=== PATIENT | male | born 1935 | race Caucasian/White ===

== ENCOUNTER 2017-08-07 10:20 | Inpatient (IN) | payer OTHER ==
[2017-08-07] MEDS ORDERED: BUPIVACAINE/EPI 0.5% 30 ML SDV ONE (10:35)
[2017-08-07] MEDS ORDERED: GABAPENTIN 100 MG CAP PO ONE (11:13)
[2017-08-07] MEDS ORDERED: cefOXitin SODIUM 2 GM in STERILE WATER INJ 21 ML IV ONE (11:13)
--- NOTE | 2017-08-07 11:13 | PDHPUP ---
History & Physical Update H&P update statement: This history and physical update is based on an assessment of the patient which was completed after admission or registration (within 24 hours), but prior to the surgery/procedure. H&P update: H&P reviewed & patient examined, no change in patient's condition since H&P completed
[2017-08-07] MEDS ORDERED: KETOROLAC 15 MG/1 ML SDV IVP ONE (11:14)
[2017-08-07] MEDS ORDERED: LIDOCAINE 1% 2 ML INJ ONE (11:19)
[2017-08-07] MEDS ORDERED: LIDOCAINE 1% 2 ML INJ ID PRN (11:20)
[2017-08-07] MEDS ORDERED: LR 1,000 ML IV ONE (11:20)
[2017-08-07] MEDS ORDERED: GABAPENTIN 300 MG CAP ONE (11:57)
--- NOTE | 2017-08-07 12:06 | PDANEPAE ---
ANE History of Present Illness colorectal cancer ANE Past Medical History - Cardiovascular History Hx Hypertension: Yes Hx Arrhythmias: Yes Hx Chest Pain: Yes Hx Coronary Artery / Peripheral Vascular Disease: Yes Hx CHF / Valvular Disease: No Hx Palpitations: Yes Cardiovascular History Comment: Afib - Pulmonary History Hx COPD: No Hx Asthma/Reactive Airway Disease: No Hx Recent Upper Respiratory Infection: No Hx Oxygen in Use at Home: No Hx Sleep Apnea: Yes Sleep Apnea Screening Result - Last Documented: Positive - Neurologic History Hx Cerebrovascular Accident: No Hx Seizures: No Hx Dementia: No - Endocrine History Hx Diabetes: No Hypothyroid: No Hyperthyroid: No Obesity: no - Renal History Hx Renal Disorders: Yes Renal History Comment: renal insufficiency - Liver History Hx Hepatic Disorders: No - Neurological & Psychiatric Hx Hx Neurological and Psychiatric Disorders: Yes Neurological / Psychiatric History Comment: restless leg syndrome, essential tremor - Cancer History Hx Cancer: Yes Cancer History Comment: new colon ca - Congenital Disorder History Hx Congenital Disorders: No - GI History Hx Gastrointestinal Disorders: Yes Gastrointestinal History Comment: reflux - Other Health History Other Health History: missing teeth upper and lower. Bruises easily - Chronic Pain History Chronic Pain: Yes (bilat knees) - Surgical History Prior Surgeries: 3 HEART ATTACKS, CABG X3. STENTS X 3 DIFFERENT OCCASIONS ANE Review of Systems Review of systems is: negative Review of Systems: - Exercise capacity METS (RN): 4 METS ANE Patient History - Allergies Allergies/Adverse Reactions: morphine Allergy (Verified 08/07/17 11:20) Other-Enter Comments - Home Medications Home medications: home medication list seen and reviewed Home Medications: Glucosamine Sulfate [Glucosamine Sulfate 500 MG (*)] 500 mg PO DAILY 07/18/17 [ Last Taken 1 Week Ago ~07/31/17] Herbals/Supplements -Info Only 1 ea PO DAILY 07/18/17 [Last Taken 1 Week Ago ~] Lisinopril [Zestril 10 mg (*)] 10 mg PO DAILY 07/18/17 [Last Taken 08/07/17 07: 00] Nitroglycerin [Nitrostat 0.4 mg (*)] 0.4 mg SL Q5M PRN 07/18/17 [Last Taken 3 Months Ago ~05/09/17] [place]-3 Fatty Acids [Fish Oil 1000 mg (*)] 1,000 mg PO DAILY 07/18/17 [Last Taken 1 Week Ago ~07/31/17] Rivaroxaban [Xarelto 15mg (*)] 15 mg PO DAILY 07/18/17 [Last Taken 08/03/17] Simvastatin [Zocor] 40 mg PO DAILY 07/18/17 [Last Taken 08/06/17] - NPO status NPO Since - Liquids (Date): 08/07/17 NPO Since - Liquids (Time): 07:00 NPO Since - Solids (Date): 08/06/17 NPO Since - Solids (Time): 10:00 - Anes Hx Anes Hx: no prior problems - Smoking Hx Smoking Status: Never smoked - Family Anes Hx Family Hx Anesthesia Complications: NONE ANE Labs/Vital Signs - Vital Signs Blood Pressure: 133/84 Heart Rate: 77 Respiratory Rate: 16 O2 Sat (%): 95 Height: 172.72 cm Weight: 86.183 kg ANE Physical Exam - Airway Neck exam: FROM Mallampati Score: Class 2 Mouth exam: poor dentition - Pulmonary Pulmonary: no respiratory distress - Cardiovascular Cardiovascular: regular rate and rhythym - ASA Status ASA Status: III ANE Anesthesia Plan Anesthesia Plan: general endotracheal anesthesia Lines/Monitors: arterial line Specialized Airway: video laryngoscope
[2017-08-07] MEDS ORDERED: fentaNYL 250 MCG/5 ML INJ ONE (12:08)
[2017-08-07] MEDS ORDERED: PROPOFOL 200 MG/20 ML VIAL ONE (12:08)
[2017-08-07] MEDS ORDERED: LIDOCAINE 2% 5 ML SDV ONE (12:10)
[2017-08-07] MEDS ORDERED: DEXAMETHASONE 4 MG/ML VIAL ONE (12:12)
[2017-08-07] MEDS ORDERED: ONDANSETRON 4 MG/2 ML VIAL ONE ×3 (12:13→17:17)
[2017-08-07] MEDS ORDERED: SUGAMMADEX SODIUM 200 MG/2 ML VIAL IVP ONE (12:13)
[2017-08-07] MEDS ORDERED: KETOROLAC 30 MG/1 ML SDV ONE (12:13)
[2017-08-07] MEDS ORDERED: GABAPENTIN 300 MG CAP PO ONE (12:15)
[2017-08-07] MEDS ORDERED: PHENYLEPHRINE 10 MG/ML SDV ONE (12:42)
[2017-08-07] MEDS ORDERED: HYDROmorphONE/DILAUDID 2 MG/ML INJ ONE (13:20)
--- NOTE | 2017-08-07 13:53 | POSTANESTH ---
Post Anesthetic Evaluation Cardiovascular Status: Normal, Stable Respiratory Status: Normal, Stable Level of Consciousness/Mental Status: Can Participate in Eval Pain Control: Adequate, Prn Tx Ordered Nausea/Vomiting Control: Adequate, Prn Tx Ordered Complications Possibly Related to Anesthesia: None Noted
[2017-08-07] MEDS ORDERED: PROMETHAZINE HCL 25 MG/ML INJ IVP PRN (14:40)
[2017-08-07] MEDS ORDERED: LABETALOL HCL 5 MG/ML 20 ML MDV IVP PRN (14:40)
[2017-08-07] MEDS ORDERED: HYDROCODONE/APAP 5/325 TAB PO PRN ×2 (14:40→15:45)
[2017-08-07] MEDS ORDERED: fentaNYL 100 MCG/2 ML INJ IVP PRN (14:40)
[2017-08-07] MEDS ORDERED: ALBUTEROL 3 ML DEYVIAL IH PRN (14:40)
[2017-08-07] MEDS ORDERED: ONDANSETRON 4 MG/2 ML VIAL IVP PRN ×2 (14:40→15:45)
[2017-08-07] MEDS ORDERED: NALOXONE HCL 0.4 MG/ML INJ IVP PRN (14:40)
[2017-08-07] MEDS ORDERED: LR 500 ML IV PRN (14:40)
[2017-08-07] MEDS ORDERED: HYDROmorphONE/DILAUDID 1 MG/ML INJ IVP PRN (14:40)
[2017-08-07] MEDS ORDERED: oxyCODONE IR 5 MG TAB PO PRN (14:40)
[2017-08-07] MEDS ORDERED: ACETAMINOPHEN 500 MG TAB PO PRN (14:40)
[2017-08-07] MEDS ORDERED: HYDROmorphONE/DILAUDID 2 MG/ML INJ IVP PRN (15:45)
[2017-08-07] MEDS ORDERED: ZOLPIDEM TARTRATE 5 MG TAB PO PRN (15:45)
--- NOTE | 2017-08-07 15:45 | POSTOPPROG ---
Post Op Note Date of Operation: 08/07/17 Surgeon: Mello Alvarez Websphere Developer: Jim Miles Anesthesiologist: Noe Nguyen Anesthesia: GET(General Endotracheal) Pre-op Diagnosis: Rectal cancer Post-op Diagnosis: Same Procedure: Lap LAR Findings: Tattoo ross 5cm prox to peritoneal reflection Inf/Abcess present in the surg proc area at time of surgery?: No EBL: Minimal Total fluids administered: 1.3L Specimen(s): Rectosigmoid colon
[2017-08-07] MEDS ORDERED: NITROGLYCERIN 0.4 MG BTL SL PRN (15:49)
[2017-08-07] MEDS ORDERED: LR 1,000 ML IV SCH (16:00)
--- NOTE | 2017-08-07 16:40 | PDMN ---
Medical Necessity Medical necessity: IP surgery per [facility] cpt 77241 lap colectomy
[2017-08-07] MEDS ORDERED: PROMETHAZINE HCL 25 MG/ML INJ ONE (16:42)
[2017-08-07] MEDS ORDERED: LABETALOL HCL 5 MG/ML 20 ML MDV ONE (16:48)
[2017-08-07] MEDS: GABAPENTIN 400 MG CAP PO SCH ×2 (18:09→21:28)
--- NOTE | 2017-08-07 18:32 | GOP ---
[f rep st] OPERATIVE REPORT DATE OF OPERATION: 08/07/2017 SURGEON: Mello Alvarez MD SLAB WORKER: Jim Miles MD ANESTHESIA: General. ANESTHESIOLOGIST: Dr. Noe Nguyen PREOPERATIVE DIAGNOSIS: Rectal cancer, abnormal appendix on CT imaging. POSTOPERATIVE DIAGNOSIS: Rectal cancer, abnormal appendix on CT imaging. PROCEDURE PERFORMED: 1. Laparoscopic low anterior colon resection. 2. Laparoscopic appendectomy. FINDINGS: Tumor clinically confined to the rectum approximately 5cm proximal to the peritoneal reflection. INDICATIONS: 82-year-old male with a newly-diagnosed rectal cancer at approximately 15 cm. Preoperative staging studies show no evidence of metastatic disease. Care plan was reviewed with Medical Oncology, and it was agreed that primary surgical intervention was felt appropriate given the high rectal location. Surgical risks and benefits were explained including bleeding , infection, open conversion, ureter injury, bowel injury, and anastomotic leak. His appendix is also being removed secondary to a possible appendiceal abnormality noted on preoperative imaging as well. All questions were entertained. He desires to proceed. DESCRIPTION OF PROCEDURE: General anesthesia was induced. The abdomen was pre- injected with 0.5% Marcaine with epinephrine. A 5 mm trocar was placed in the supraumbilical position, preceded by a Veress needle. Two additional 10 mm ports were placed in the right lower quadrant as well as hypogastrium, and a 5 mm port within the right mid abdomen. Abdominal exploration revealed a smooth liver, without nodularity. Visualized peritoneal surfaces were all normal. No evidence of ascites was present. The omentum appeared normal. The rectal tumor was easily identified with the previously placed proximal and distal tattoos. The distal tattooing was noted to be approximately 5 cm above the peritoneal reflection. The left colon was mobilized off the white line of [place]. A tortuous external iliac artery was identified and preserved, as was the left ureter throughout the dissection. The peritoneum was scored on either side of the rectum, and a complete trans-mesorectal excision was subsequently entertained. The dissection was taken down distally down to the peritoneal reflection, which was opened, allowing for the rectum to be brought into the abdominal cavity by multiple additional centimeters. A window was created across the underside of the rectum, allowing for the ureter to be identified from medial and lateral positions. At this point, the distal rectum was transected with an endoscopic LYNDSEY stapler. Using the LigaSure device, the mesorectal dissection was completely taken off the sacral hollow and up toward the inferior mesenteric artery, which was also divided. There was a favorable sigmoid redundancy, making for easy reapposition of the mid descending colon down to the pelvic floor. Attention was directed to the appendix. This was subsequently taken out of the retroperitoneum. This was a generally thin- walled structure, without any visible abnormalities extraluminally. The mesoappendix was divided with the LigaSure device, and the base was transected with the endoscopic LYNDSEY stapler as well. The hypogastric incision was extended. A wound protector was placed. The colon and appendix were brought ex vivo. The remaining mesenteric dissection was completed. The colon was transected at a mid descending portion. The cut edge appeared to be pink and healthy, with excellent bleeding. The specimen was removed from the field. A 33 EEA dilator was easily passed into the proximal rectum. A pursestring was applied over the anvil. The colon was reduced back in the abdominal cavity. The hypogastric incision was closed in layers with a PDS suture. The abdomen was re-insufflated. The stapling device was placed up the rectum, and the anastomosis was created with a single firing. There were 2 fat pink healthy donuts upon completion. The rectum was instilled under saline instillation, showing no intraluminal bubbling within the abdominal cavity. Satisfactory hemostasis was assured throughout the abdominal cavity. Trocars were removed under direct visualization. The wounds were all closed in layers with absorbable sutures followed by Dermabond. The patient was taken to recovery room and extubated uneventfully. /[id number]/MODL MTDD
[2017-08-07] MEDS: cefOXitin SODIUM 1 GM in STERILE WATER INJ 10.5 ML IV SCH (19:13)
[2017-08-07] MEDS: IBUPROFEN 600 MG TAB PO SCH (21:28)
[2017-08-08] MEDS: cefOXitin SODIUM 1 GM in STERILE WATER INJ 10.5 ML IV SCH ×2 (00:04→06:05)
[2017-08-08] MEDS: IBUPROFEN 600 MG TAB PO SCH ×3 (06:03→21:41)
[2017-08-08] MEDS: GLUCOSAMINE SULF 500 MG CAP PO SCH (08:53)
[2017-08-08] MEDS: GABAPENTIN 400 MG CAP PO SCH ×3 (08:53→21:41)
[2017-08-08] MEDS: LISINOPRIL 10 MG TAB PO SCH (08:53)
[2017-08-08] MEDS: ATORVASTATIN CALCIUM 20 MG TAB PO SCH (08:53)
[2017-08-08] MEDS: OMEGA-3 FATTY ACIDS 1,000 MG CAP PO SCH (08:53)
--- NOTE | 2017-08-08 12:19 | ASMTCMCOM ---
CM Note CM Note Notes: Patient admitted for elective laparascopic appy and colon resection proceeding a recent rectal cancer diagnosis. Patient lives in [place] with his . Discharge plan is to return home independently. If any needs arise, Case Management can assist. Date Signed: 08/08/2017 12:18 PM Electronically Signed By:Wilda Navarro RN
--- NOTE | 2017-08-08 14:36 | SOAPPROG ---
SOAP Progress Note Assessment/Plan: Assessment:no overnight issues. emesis last alexsander - nausea resolved today. pain well controlled with IB and gabapentin. +BM. AVSS. comfortable. abd dist, soft. incis clean. doing well pod#1 s/p lap LAR. adv diet. bc IV. restart xarelto tomorrow. repeat lytes in am (cr 1.3). family at bedside - to ambulate in halls today. Plan: 08/08/17 14:34 Objective: Vital Signs Temp Pulse Resp BP Pulse Ox 36.6 C 73 14 110/68 98 08/08/17 11:10 08/08/17 11:10 08/08/17 11:10 08/08/17 11:10 08/08/17 11:10 Laboratory Results 08/08/17 04:50 08/08/17 04:50 08/07/17 08/08/17 08/09/17 05:59 05:59 05:59 Intake Total 2019 1200 Output Total 875 750 Balance 1145 450 ICD10 Worksheet Patient Problems: Problems Problem Status Onset Rectal adenocarcinoma Acute - ICD10 Problem Qualifiers (1) Rectal adenocarcinoma
[2017-08-09] MEDS: IBUPROFEN 600 MG TAB PO SCH ×3 (06:14→21:38)
[2017-08-09] MEDS: ATORVASTATIN CALCIUM 20 MG TAB PO SCH ×2 (08:28→08:29)
[2017-08-09] MEDS: RIVAROXABAN 15 MG TAB PO SCH ×2 (08:28→08:29)
[2017-08-09] MEDS: GABAPENTIN 400 MG CAP PO SCH ×3 (08:29→21:38)
[2017-08-09] MEDS: LISINOPRIL 10 MG TAB PO SCH (08:29)
[2017-08-09] MEDS: OMEGA-3 FATTY ACIDS 1,000 MG CAP PO SCH (08:29)
[2017-08-09] MEDS: GLUCOSAMINE SULF 500 MG CAP PO SCH (08:30)
--- NOTE | 2017-08-09 13:06 | SOAPPROG ---
SOAP Progress Note Assessment/Plan: Assessment: good evening. min pain. no further nausea. ambulating well with family. tolerating po. diarrhea overnight. avss. comfortable. abd soft, dist , incis clean. no erythema. pod#2 s/p lap LAR - rectal ca. doing very well. restart xarelto today. anticipate dc in am to family in [place]. creat stable. no overnight issues. emesis last alexsander - nausea resolved today. pain well controlled with IB and gabapentin. +BM. AVSS. comfortable. abd dist, soft. incis clean. doing well pod#1 s/p lap LAR. adv diet. bc IV. restart xarelto tomorrow. repeat lytes in am (cr 1.3). family at bedside - to ambulate in halls today. Plan: 08/08/17 14:34 08/09/17 13:04 Objective: Vital Signs Temp Pulse Resp BP Pulse Ox 37.0 C 75 12 111/64 96 08/09/17 11:39 08/09/17 11:39 08/09/17 11:39 08/09/17 11:39 08/09/17 11:39 Laboratory Results 08/08/17 04:50 08/09/17 04:43 08/08/17 08/09/17 08/10/17 05:59 05:59 05:59 Intake Total 2019 0428 Output Total 075 6196 Balance 1145 -293 ICD10 Worksheet Patient Problems: Problems Problem Status Onset Rectal adenocarcinoma Acute - ICD10 Problem Qualifiers (1) Rectal adenocarcinoma
[2017-08-10] MEDS: IBUPROFEN 600 MG TAB PO SCH (06:24)
[2017-08-10 08:13] VITALS: BP 124/85; PULSE 63; RESP 20; TEMP 98.5; O2SAT 93
[2017-08-10] MEDS: OMEGA-3 FATTY ACIDS 1,000 MG CAP PO SCH (09:39)
[2017-08-10] MEDS: GLUCOSAMINE SULF 500 MG CAP PO SCH (09:39)
[2017-08-10] MEDS: LISINOPRIL 10 MG TAB PO SCH (09:39)
[2017-08-10] MEDS: ATORVASTATIN CALCIUM 20 MG TAB PO SCH (09:39)
[2017-08-10] MEDS: GABAPENTIN 400 MG CAP PO SCH (09:40)
[2017-08-10] MEDS: RIVAROXABAN 15 MG TAB PO SCH (09:40)
--- NOTE | 2017-08-10 09:44 | SOAPPROG ---
SOAP Progress Note Assessment/Plan: Assessment: no issues. avss. comfortable. abd dist, soft. incis clean. doing great. home today. f/u 1 wk (possibly via phone). path reviewed. outpt ONC to be arranged in [place]. all questions answered. good evening. min pain. no further nausea. ambulating well with family. tolerating po. diarrhea overnight. avss. comfortable. abd soft, dist, incis clean. no erythema. pod#2 s/p lap LAR - rectal ca. doing very well. restart xarelto today. anticipate dc in am to family in [place]. creat stable. no overnight issues. emesis last alexsander - nausea resolved today. pain well controlled with IB and gabapentin. +BM. AVSS. comfortable. abd dist, soft. incis clean. doing well pod#1 s/p lap LAR. adv diet. bc IV. restart xarelto tomorrow. repeat lytes in am (cr 1.3). family at bedside - to ambulate in halls today. Plan: 08/08/17 14:34 08/09/17 13:04 08/10/17 09:43 Objective: Vital Signs Temp Pulse Resp BP Pulse Ox 36.9 C 63 20 124/85 H 93 08/10/17 08:00 08/10/17 08:00 08/10/17 08:00 08/10/17 09:39 08/10/17 08:00 Laboratory Results 08/08/17 04:50 08/09/17 04:43 08/09/17 08/10/17 08/11/17 05:59 05:59 05:59 Intake Total 1800 400 Output Total 8124 2 Balance -750 398 ICD10 Worksheet Patient Problems: Problems Problem Status Onset Rectal adenocarcinoma Acute - ICD10 Problem Qualifiers (1) Rectal adenocarcinoma
--- NOTE | 2017-08-10 11:25 | GDS ---
[f rep st] DISCHARGE SUMMARY REASON FOR ADMISSION: Rectal cancer. HOSPITAL COURSE: 82-year-old male admitted with rectal cancer. He underwent an uncomplicated laparo scopic low anterior resection with appendectomy. He had a benign postoperative course. He was disch arged to home on postop day #3 in excellent condition tolerating a regular diet with adequate pain co ntrol with oral analgesics. He will follow up with Dr. Alvarez via phone in 1 week prior to returning to [place]. He was given prescriptions for [place] as needed for discomfort. He will make arrangemen ts to follow up with his Oncology Department closer to home as well. Full activity instructions were explained prior to leaving. 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 /[id number]/MODL
== END 2017-08-10 12:19 | disposition home or self-care (01) | DRG 331 ==
LOC: F3N 10:20 → F3E 15:41
PROVIDERS: ADMIT Surgery; ATTEND Surgery
PROC: 0DTN4ZZ Resection of Sigmoid Colon, Percutaneous Endoscopic Approach (ICD-10-PCS; principal; 2017-08-07 12:00)
PROC: 0DTJ4ZZ Resection of Appendix, Percutaneous Endoscopic Approach (ICD-10-PCS; principal; 2017-08-07 12:00)
DX: C19 Malignant neoplasm of rectosigmoid junction (principal); K38.1 Appendicular concretions; I12.9 Hypertensive chronic kidney disease with stage 1 through stage 4 chronic kidney disease, or unspecified chronic kidney disease; N18.9 Chronic kidney disease, unspecified; I25.10 Atherosclerotic heart disease of native coronary artery without angina pectoris; G47.33 Obstructive sleep apnea (adult) (pediatric); G25.81 Restless legs syndrome; G25.0 Essential tremor; K21.9 Gastro-esophageal reflux disease without esophagitis; I48.91 Unspecified atrial fibrillation; I25.2 Old myocardial infarction; Z95.1 Presence of aortocoronary bypass graft; Z95.5 Presence of coronary angioplasty implant and graft
CPT/HCPCS: J0694; J1100; J1170; J1885; J2370; J2405; J2550; J2704; J3010